=== PATIENT | male | born 1970 | race Caucasian/White ===

== ENCOUNTER 2025-04-10 15:49 | Emergency (ER) | payer SELFPAY ==
[2025-04-10 15:51] VITALS: BP 174/89
[2025-04-10 16:13] LABS: Hematocrit 41.9 % (39.0-52.0); Hemoglobin 14.9 g/dL (13.0-18.0); Mean Corp Hgb Conc. 35.6 g/dL (33.0-37.0); Mean Corpuscular Volume 85.2 fL (80.0-94.0); Nucleated Red Blood Cells % 0 % (-); Platelet Count 228 10^3/uL (130-400); Red Cell Dist. Width 12.9 % (11.5-14.5)
[2025-04-10 16:31] LABS: ALT (SGPT) 26 U/L (0-50); AST (SGOT) 22 U/L (17-59); Albumin 4.1 g/dl (3.5-5.0); Alkaline Phosphatase 85 U/L (38-126); Blood Urea Nitrogen 22 mg/dl (9-20); Calcium 9.0 mg/dl (8.4-10.2); Carbon Dioxide 28 mmol/L (22-30); Chloride 101 mmol/L (98-107); Glucose 292 mg/dl (70-99); Potassium 4.7 mmol/L (3.5-5.1); Sodium 134 mmol/L (135-145); Total Protein 7.3 g/dl (6.3-8.2); eGFR > 60.00
[2025-04-10 16:42] LABS: Troponin I 0.021 ng/ml
[2025-04-10] MEDS: ADACEL 0.5 ML IM (19:29)
[2025-04-10 20:58] VITALS: BP 177/87
--- NOTE | 2025-04-10 21:17 | ED.GENMED ---
History of Present Illness
General
Chief Complaint: Fainting/Passed Out
Source: patient
Exam Limitations: none
Time Seen by Provider: 04/10/25 18:56
Nursing documentation reviewed up to this point in time: agreed with
History of Present Illness
History of Present Illness:
Patient to the emergency department for evaluation after syncopal. He states he was at [employer] today, stepped outside to have a cigarette, became lightheaded and passed out. He hit the back of his head on the cement pavement. He sustained a
laceration and large hematoma to site. He was transported to [facility] however he left prior to being evaluated due to the wait. Spouse drove him to our ED. He denies headache dizziness or blurred vision. He denies any chest pain or
pressure. He denies any shortness of breath. No prior history of same. He feels that he syncopized due to the nicotine. He states he has not smoked in a long time. He also reports not having anything to eat and drink most of the day.
Past History
Past History
ED Past Medical History: NIDDM
ED Past Surgical History: Tonsilectomy
Social History
Tobacco: Smoker
Review of Systems
Review of Systems
Allergies reviewed?: Yes
All Other Systems: ROS reviewed and negative except as documented in HPI and ROS
Constitutional: Reports no symptoms
EENT: Reports no symptoms
Respiratory: Reports no symptoms
Cardiac: Reports no symptoms
ABD/GI: Reports no symptoms
: Reports no symptoms
Musculoskeletal: Reports no symptoms
Skin: Reports other (Hematoma laceration to left occipital scalp)
Neurological: Reports no symptoms
Psychiatric: Reports no symptoms
Phy Exam
General Physical Exam
General Presentation: well appearing and no apparent distress
General age: appears stated age
General Skin: warm and dry
General Mental: alert
Cardiovascular Exam
Cardiovascular Exam: regular rate/rhythm and no edema
Pulmonary Exam
Pulmonary Exam: lungs clear and no respiratory distress
Neurological Exam
Neurological Exam: alert, oriented x3, CN II-XII intact, no motor deficits, no sensory deficits, speech normal and normal gait
Norman Coma Scale
Eye Opening: Spontaneous
Verbal Response: Oriented
Motor Response: Obeys Commands
GCS Total Score: 15
Musculoskeletal Exam
Musculoskeletal Exam: full ROM, neuro vasc intact and other (Full nonpainful range of motion to head/neck)
Skin Exam
Skin Exam: normal color, warm/dry, no rash and other (Hematoma laceration to left occipital scalp)
Psychiatric Exam
Psychiatric Exam: normal mood/affect
Course
Orders/Labs/Results
Orders:
Orders
04/10/25 15:55
ECG [Electrocardiogram (*1)] Urgent
Reason for Study: Syncope
EKG- Treatment ONCE
04/10/25 16:08
Complete Blood Count/With Diff Urgent
Comprehensive Metabolic Panel Urgent
Troponin I Urgent
04/10/25 19:09
Tetanus/Diphth/Acelpertussis [Adacel] 0.5 ml IM .ONCE ONE
04/10/25 19:10
CT Head W/o Iv Contrast Urgent
Comment:
Reason For Exam: trauma
Abnormal Lab Results
04/10/25
16:08
WBC 12.2 H 10^3/uL
(4.8-10.8)
Abs Immat Gran (auto) 0.1 H 10^3/uL
(0-0.05)
Absolute Neuts (auto) 9.5 H 10^3/uL
(1.4-6.5)
Absolute Monos (auto) 0.8 H 10^3/uL
(0.1-0.6)
Immature Gran % 0.6 H %
(0-0.5)
Neutrophils % 77.9 H %
(42.2-75.2)
Lymphocytes % 14.1 L %
(20.5-51.1)
Sodium 134 L mmol/L
(135-145)
BUN 22 H mg/dl
(9-20)
Glucose 292 H mg/dl
(70-99)
04/10/25 16:08
04/10/25 16:08
Vital Signs
Initial and Last Documented VS:
Initial Vital Signs
Temp Pulse Resp BP Pulse Ox
98.2 F 70 16 174/89 99
04/10/25 15:51 04/10/25 15:51 04/10/25 15:51 04/10/25 15:51 04/10/25 15:51
Last Documented Vital Signs
Temp Pulse Resp BP Pulse Ox
98.2 F 69 18 177/87 96
04/10/25 15:51 04/10/25 20:58 04/10/25 20:58 04/10/25 20:58 04/10/25 21:17
*Radiology
Radiology exam reviewed: radiology read reviewed
*Pulse Oximetry
SaO2: 96
Oxygen Mode of Delivery: Room air
Patient hypoxic: no
*Critical Care Note
Total Time (30-74mins, 75-104mins- exclusive of procedures): Not Applicable
Update Note
Update Note:
Patient to the emergency department for evaluation after syncopal event earlier this afternoon. He he states he started to smoke a cigarette became lightheaded and then passed out. He hit the back of his head on the pavement. He has a large
hematoma at site with some active bleeding. Site was cleansed with normal saline and reveals a deep abrasion at site. Skin glue applied to site. Bleeding has stopped. He remains awake alert and oriented, GCS 15. Vital signs are stable he
remains afebrile. Labs reviewed, elevated glucose otherwise no concerning findings. Troponin is negative. EKG NSR. He denies any chest pain pressure shortness of breath nausea vomiting or diaphoresis. Will discharge home with . He will
follow-up with PCP in the a.m. He was given instructions on signs and symptoms to return to the emergency department and he is agreeable with this plan.
ED Attending Note
-
Portions of this chart may have been created with voice recognition software.� Occasional wrong word or��sound alike� substitutions may have occurred due to the inherent limitations of voice recognition software.
Discharge Plan
Departure
Patient Disposition: Home (Routine Discharge)
Date of Disposition: 04/10/25
Time of Disposition: 21:09
Patient with high blood pressure during this ER visit?: No
Condition: Good
Covid-19: Not Applicable
Discharge Problem:
Head injury
Instructions: Wound Care (DC), Head Injury in Adults (DC), Contusion (DC)
Prescriptions:
No Action
cranberry fruit 400 MG capsule
400 mg PO BID
horse chestnut 150 MG capsule
150 mg PO BID
insulin NPH and regular human 100 UNIT/1 ML suspension
26 units SC BID Qty: 1 0RF
Rx Instructions:
E11.65
(DME) insulin syringe-needle U-100 1 EACH syringe
1 ea MC BID Qty: 100 0RF
Rx Instructions:
E11.65
acetaminophen 325 MG tablet
650 mg PO Q6HPRN PRN (Reason: mild to moderate pain) Qty: 30 0RF
lidocaine [Aspercreme (lidocaine)] 1 PATCH adhesive patch,medicated
2 patch topical DAILY Qty: 30 0RF
polyethylene glycol 3350 17 GRAMS powder in packet
17 grams PO DAILY Qty: 30 0RF
aspirin 325 MG tablet,delayed release (DR/EC)
325 mg PO DAILY Qty: 30 0RF
docusate sodium 100 MG capsule
100 mg PO BID Qty: 60 0RF
oxycodone 5 MG tablet
5 mg PO Q4HPRN PRN (Reason: mild pain) Qty: 18 0RF
Referrals:
Johan Reyes MD [Family Provider, Family Practice] - Follow up in 2-3 days
Interventions
Interventions:
*Risk Screen - Suicide Last Done: 04/10/25 19:15
*General Assessment Last Done: 04/10/25 19:15
*Neglect/Abuse Screening Last Done: 04/10/25 19:15
*ED- Fall Risk Assessment Last Done: 04/10/25 19:15
*ED COVID-19 Vaccine History Last Done: 04/10/25 19:15
*ED Influenza Vaccine History Last Done: 04/10/25 19:15
*Nursing Disposition Last Done: 04/10/25 21:21
ED- Cardiac Assessment Last Done: 04/10/25 19:15
ED- Neurological Assessment Last Done: 04/10/25 19:15
ED-Skin Assessment Last Done: 04/10/25 19:15
Discharge Date and Time
Discharge Date/Time: 04/10/25 21:22
Print Language: ARMENIAN
== END 2025-04-10 21:22 | disposition home or self-care (01) ==
LOC: EMR 15:49
PROVIDERS: EMERGENCY PHYSICIAN Emergency Medicine; FAMILY PHYSICIAN Family Medicine
DX: S00.03XA Contusion of scalp, initial encounter (principal); S00.01XA Abrasion of scalp, initial encounter; E11.9 Type 2 diabetes mellitus without complications; F17.210 Nicotine dependence, cigarettes, uncomplicated; W18.39XA Other fall on same level, initial encounter; Z23 Encounter for immunization
CPT/HCPCS: 99284; 90471; 70450; 80053; 84484; 85025; 90715; 93005